=== PATIENT | male | born 1970 | race Two or more races ===

== ENCOUNTER 2022-05-14 17:38 | Emergency (ER) | payer OTHER ==
[~2022-05-14] VITALS: Ht 160 cm; Wt 83.9 kg
[2022-05-14] MEDS ORDERED: PROTONIX20 MG PO (18:11)
[2022-05-14] MEDS ORDERED: ZOFRAN8 MG PO (18:11)
== END 2022-05-14 20:31 | disposition home or self-care (01) ==
LOC: ER 17:38
DX: R11.2 Nausea with vomiting, unspecified (principal); Z91.013 Allergy to seafood